=== PATIENT | female | born 1970 | race Caucasian/White ===

== ENCOUNTER 2017-08-05 11:55 | Day surgery (SDC) | payer MEDICAID ==
[~2017-08-05] VITALS: Ht 180.3 cm; Wt 111.4 kg
[~2017-08-05 11:55] MED LIST: CEPH-419 PO; CYCL-394 PO; DULO-31 PO; NORCO10T PO; PRED20TA PO; PROM25TA14 PO; ZOLP12.531 PO; [UNRECOGNIZED DRUG - CODE] PO
[2017-08-05 12:05] VITALS: BP 145/86
[2017-08-05] MEDS ORDERED: MIDAZolam 5mg/5ml vial ONE ×2 (12:08→13:18)
[2017-08-05] MEDS ORDERED: fentaNYL/PF 50MCG/1 ML 2ML syringe ONE ×2 (12:08→13:18)
[2017-08-05] MEDS ORDERED: PROC-8 PO (12:21)
[2017-08-05] MEDS ORDERED: OMEP20TA5 PO (12:22)
[2017-08-05] MEDS ORDERED: LORA0.5T PO (12:22)
[2017-08-05] MEDS ORDERED: METO50TA17 PO (12:23)
[2017-08-05] MEDS ORDERED: CHOL400T PO (12:23)
[2017-08-05] MEDS ORDERED: SIMV20TA PO (12:24)
[2017-08-05] MEDS ORDERED: METF500T7 PO (12:24)
[2017-08-05] MEDS ORDERED: GLIM2TAB2 PO (12:24)
[2017-08-05] MEDS ORDERED: BUTA1TAB52 PO (12:25)
[2017-08-05] MEDS ORDERED: FURO-150 PO (12:25)
[2017-08-05] MEDS ORDERED: AMLO5TAB PO (12:26)
[2017-08-05] MEDS ORDERED: VENL75CA55 PO (12:26)
[2017-08-05] MEDS ORDERED: BREX1TAB PO (12:27)
[2017-08-05] MEDS ORDERED: QUET300T2 PO (12:28)
[2017-08-05] MEDS ORDERED: APIX2.5T PO (12:29)
[2017-08-05] MEDS ORDERED: ROPI1TAB4 PO (12:29)
[2017-08-05] MEDS ORDERED: ONDA4TAB12 PO (12:30)
[2017-08-05 13:40] VITALS: BP 103/60
[2017-08-05 13:50] VITALS: BP 111/58
[2017-08-05 14:00] VITALS: BP 108/57
== END 2017-08-05 14:14 | disposition home or self-care (01) ==
LOC: GI LAB 11:55
PROVIDERS: ATTEND Internal Medicine Gastroenterology
DX: D12.6 Benign neoplasm of colon, unspecified (principal); I10 Essential (primary) hypertension; E11.9 Type 2 diabetes mellitus without complications; G90.521 Complex regional pain syndrome I of right lower limb; Z90.710 Acquired absence of both cervix and uterus; Z79.82 Long term (current) use of aspirin; Z72.89 Other problems related to lifestyle; Z79.01 Long term (current) use of anticoagulants; Z88.0 Allergy status to penicillin; Z90.49 Acquired absence of other specified parts of digestive tract; Z90.89 Acquired absence of other organs; Z79.891 Long term (current) use of opiate analgesic; Z79.84 Long term (current) use of oral hypoglycemic drugs; Z88.6 Allergy status to analgesic agent; Z88.8 Allergy status to other drugs, medicaments and biological substances; Z98.890 Other specified postprocedural states; Z79.899 Other long term (current) drug therapy
CPT/HCPCS: 45380; 99152; J2250; J3010; J7030; A4620; G0500

== ENCOUNTER 2018-04-07 07:50 | Outpatient (CLI) | payer MEDICAID ==
[~2018-04-07 07:50] MED LIST changes: +AMLO5TAB PO; +APIX2.5T PO; +BREX1TAB PO; +BUTA1TAB52 PO; -CEPH-419 PO; +CHOL400T PO; -DULO-31 PO; +FURO-150 PO; +GLIM2TAB2 PO; +LORA0.5T PO; +METF500T7 PO; +METO50TA17 PO; +OMEP20TA5 PO; +ONDA4TAB12 PO; -PRED20TA PO; +PROC-8 PO; -PROM25TA14 PO; +QUET300T2 PO; +ROPI1TAB4 PO; +SIMV20TA PO; +VENL75CA55 PO; -ZOLP12.531 PO; -[UNRECOGNIZED DRUG - CODE] PO
== END 2018-04-07 23:59 | disposition home or self-care (01) ==
LOC: DIABETIC 07:50
PROVIDERS: ATTEND Internal Medicine Endocrinology, Diabetes & Metabolism
DX: E11.65 Type 2 diabetes mellitus with hyperglycemia (principal); I10 Essential (primary) hypertension; Z79.4 Long term (current) use of insulin; Z79.899 Other long term (current) drug therapy; Z88.0 Allergy status to penicillin; Z88.8 Allergy status to other drugs, medicaments and biological substances; Z90.710 Acquired absence of both cervix and uterus
CPT/HCPCS: G0108

== ENCOUNTER 2018-05-12 01:17 | Outpatient (CLI) | payer MEDICAID | END 2018-05-12 23:59 | disposition home or self-care (01) | LOC: DIABETIC 01:17 | PROVIDERS: ATTEND Internal Medicine Endocrinology, Diabetes & Metabolism | DX: E11.9 Type 2 diabetes mellitus without complications (principal); I10 Essential (primary) hypertension; Z79.84 Long term (current) use of oral hypoglycemic drugs; Z72.89 Other problems related to lifestyle; Z88.0 Allergy status to penicillin; Z88.8 Allergy status to other drugs, medicaments and biological substances | CPT/HCPCS: G0108 ==

== ENCOUNTER 2021-06-11 11:12 | Day surgery (SDC) | payer MEDICARE, MEDICAID ==
[~2021-06-11] VITALS: Ht 180.3 cm; Wt 116.3 kg
[~2021-06-11 11:12] MED LIST changes: -GLIM2TAB2 PO; +GLIM2TAB6 PO; +METF-900 PO; -METF500T7 PO; -ROPI1TAB4 PO; +ROPI1TAB6 PO
[2021-06-11] MEDS ORDERED: normal saline 1000ml 1,000 ML IV PRN (11:35)
[2021-06-11 12:30] LABS: BASOPHILS # (AUTO) 0.1 X10'3 (0-0.2); EOSINOPHILS % (AUTO) 15.3 % (0-6); HEMOGLOBIN 13.4 g/dl (12.0-16.0); LYMPHOCYTES # (AUTO) 1.7 X10'3 (1.1-4.8); LYMPHOCYTES % (AUTO) 26.2 % (21-51); MEAN CORPUSCULAR HGB CONC 32.8 g/dL (33.0-36.5); MEAN CORPUSCULAR VOLUME 91.5 FL (78-98); MEAN PLATELET VOLUME 8.4 FL (7.4-10.4); MONOCYTES # (AUTO) 0.5 X10'3 (0-0.9); MONOCYTES % (AUTO) 7.2 % (2-12); NEUTROPHILS # (AUTO) 3.2 X10'3 (1.8-7.7); NEUTROPHILS % (AUTO) 50.3 % (42-75); PLATELET COUNT 171 X10'3 (140-440); RED BLOOD COUNT 4.48 X10'6 (4.20-5.60); RED CELL DISTRIBUTION WIDTH 14.3 % (11.5-14.5); WHITE BLOOD COUNT 6.3 X10'3 (4.5-11.0)
[2021-06-11] MEDS ORDERED: LIDO30CR (12:33)
[2021-06-11] MEDS ORDERED: SERT-433 (12:33)
[2021-06-11] MEDS ORDERED: NOVLG (12:33)
[2021-06-11] MEDS ORDERED: VANC10VI (12:33)
[2021-06-11] MEDS ORDERED: QUET400T13 (12:33)
[2021-06-11] MEDS ORDERED: DICL100G30 (12:33)
[2021-06-11] MEDS ORDERED: LORA-269 PO (12:33)
[2021-06-11] MEDS ORDERED: MECL-159 PO (12:33)
[2021-06-11] MEDS ORDERED: MONT-40 (12:33)
[2021-06-11] MEDS ORDERED: ATOR-2 (12:39)
[2021-06-11] MEDS ORDERED: PROC10TA10 PO (12:39)
[2021-06-11] MEDS ORDERED: INSU100I29 (12:39)
[2021-06-11] MEDS ORDERED: EMPA25TA (12:39)
[2021-06-11] MEDS ORDERED: CARV6.253 PO (12:39)
[2021-06-11] MEDS ORDERED: ACET-2389 (12:39)
[2021-06-11] MEDS ORDERED: AMYL1CAP52 PO (12:39)
[2021-06-11] MEDS ORDERED: NITR0.4T48 SL (12:41)
[2021-06-11] MEDS ORDERED: ESTR42.53 (12:45)
[2021-06-11] MEDS ORDERED: IPRA30SP (12:45)
[2021-06-11] MEDS ORDERED: DICY10CA88 PO (12:50)
[2021-06-11] MEDS ORDERED: MODA200T48 PO (12:50)
[2021-06-11] MEDS ORDERED: FENO134C21 PO (12:50)
[2021-06-11] MEDS ORDERED: [UNRECOGNIZED DRUG - CODE] IR (12:50)
[2021-06-11] MEDS ORDERED: MELA10TA3 PO (12:50)
[2021-06-11] MEDS ORDERED: LIDO15CR11 TOP (12:50)
[2021-06-11] MEDS ORDERED: CAPS60CR6 TP (12:53)
[2021-06-11] MEDS ORDERED: DULA0.75 (12:53)
[2021-06-11] MEDS ORDERED: OMEG1CAP2 (12:53)
[2021-06-11] MEDS ORDERED: VITA-268 PO (12:53)
[2021-06-11 13:27] VITALS: BP 140/89
[2021-06-11] MEDS ORDERED: heparin sodium, porcine/PF 100unit/ml 5ML syringe ONE (13:56)
[2021-06-11] MEDS ORDERED: midazolam 1 mg/ML 2ml injection ONE (13:56)
[2021-06-11] MEDS ORDERED: fentaNYL/PF 50MCG/1 ML 2ML syringe ONE (13:56)
== END 2021-06-11 14:51 | disposition home or self-care (01) ==
LOC: SSTAY O 11:12
PROVIDERS: ATTEND Preventive Medicine Aerospace Medicine
DX: E11.65 Type 2 diabetes mellitus with hyperglycemia (principal); Z53.8 Procedure and treatment not carried out for other reasons; Z79.2 Long term (current) use of antibiotics; Z88.8 Allergy status to other drugs, medicaments and biological substances; Z88.0 Allergy status to penicillin
CPT/HCPCS: 36415; 85025; J1642; J2250; J3010

== ENCOUNTER 2021-08-24 19:32 | Outpatient (CLI) | payer MEDICARE, MEDICAID ==
[~2021-08-24 19:32] MED LIST changes: +ACET-2389; -AMLO5TAB PO; +AMYL1CAP52 PO; +ATOR-2; -BUTA1TAB52 PO; +CAPS60CR6 TP; +CARV6.253 PO; +DICL100G30; +DICY10CA88 PO; +DULA0.75; +EMPA25TA; +ESTR42.53; +FENO134C21 PO; -FURO-150 PO; -GLIM2TAB6 PO; +INSU100I29; +IPRA30SP; +LIDO15CR11 TOP; +LIDO30CR; +LORA-269 PO; -LORA0.5T PO; +MECL-159 PO; +MELA10TA3 PO; -METF-900 PO; -METO50TA17 PO; +MODA200T48 PO; +MONT-40; +NITR0.4T48 SL; +NOVLG; +OMEG1CAP2; +OMEP20TA43 PO; -OMEP20TA5 PO; -ONDA4TAB12 PO; -PROC-8 PO; +PROC10TA10 PO; -QUET300T2 PO; +QUET400T13; -ROPI1TAB6 PO; +SERT-433; -SIMV20TA PO; +VANC10VI; -VENL75CA55 PO; +VITA-268 PO; +[UNRECOGNIZED DRUG - CODE] IR
[2021-08-24 19:51] LABS: BASOPHILS % (AUTO) 0.4 % (0-1); EOSINOPHILS # (AUTO) 0.1 X10'3 (0-0.9); EOSINOPHILS % (AUTO) 1.8 % (0-6); HEMATOCRIT 40.5 % (35.0-45.0); HEMOGLOBIN 13.2 g/dl (12.0-16.0); LYMPHOCYTES % (AUTO) 42.3 % (21-51); MEAN CORPUSCULAR HEMOGLOBIN 29.9 PG (27.0-31.0); MEAN CORPUSCULAR HGB CONC 32.7 g/dL (33.0-36.5); MEAN CORPUSCULAR VOLUME 91.4 FL (78-98); MEAN PLATELET VOLUME 9.7 FL (7.4-10.4); MONOCYTES # (AUTO) 0.4 X10'3 (0-0.9); MONOCYTES % (AUTO) 8.6 % (2-12); NEUTROPHILS # (AUTO) 2.2 X10'3 (1.8-7.7); NEUTROPHILS % (AUTO) 46.9 % (42-75); PLATELET COUNT 163 X10'3 (140-440); RED BLOOD COUNT 4.43 X10'6 (4.20-5.60); RED CELL DISTRIBUTION WIDTH 14.2 % (11.5-14.5); WHITE BLOOD COUNT 4.6 X10'3 (4.5-11.0)
[2021-08-24 19:58] LABS: ALBUMIN 4.1 G/DL (3.4-5.0); ANION GAP 10 (8-16); BLOOD UREA NITROGEN 19 MG/DL (7-18); BUN/CREATININE RATIO 16.8 (6.6-38.0); CALCIUM 9.7 MG/DL (8.5-10.1); CHLORIDE 103 MMOL/L (99-107); CREATININE 1.13 MG/DL (0.40-0.90); SODIUM 140 MMOL/L (135-145); TOTAL CARBON DIOXIDE 26.9 MMOL/L (24-32); eGFR 50 ML/MIN
[2021-08-24 20:07] LABS: GLUCOSE 179 MG/DL (70-104)
== END 2021-08-24 23:59 | disposition home or self-care (01) ==
LOC: LAB SPEC 19:32
PROVIDERS: ATTEND Student in an Organized Health Care Education/Training Program
DX: L03.90 Cellulitis, unspecified (principal)
CPT/HCPCS: 36415; 80048; 85025

== ENCOUNTER 2021-12-17 05:42 | Day surgery (SDC) | payer MEDICARE, MEDICAID ==
[2021-12-11 12:37] LABS: BASOPHILS % (AUTO) 0.5 % (0-1); EOSINOPHILS # (AUTO) 0.1 X10'3 (0-0.9); EOSINOPHILS % (AUTO) 1.5 % (0-6); LYMPHOCYTES # (AUTO) 2.5 X10'3 (1.1-4.8); LYMPHOCYTES % (AUTO) 35.4 % (21-51); MEAN CORPUSCULAR HEMOGLOBIN 30.1 PG (27.0-31.0); MEAN CORPUSCULAR HGB CONC 33.2 g/dL (33.0-36.5); MEAN CORPUSCULAR VOLUME 90.6 FL (78-98); MEAN PLATELET VOLUME 8.3 FL (7.4-10.4); MONOCYTES # (AUTO) 0.5 X10'3 (0-0.9); MONOCYTES % (AUTO) 6.6 % (2-12); NEUTROPHILS # (AUTO) 3.9 X10'3 (1.8-7.7); PRE OP HEMATOCRIT 41.9 % (35.0-45.0); PRE OP HEMOGLOBIN 13.9 g/dL (12.0-16.0); PRE OP PLATELET COUNT 197 X10'3 (140-440); RED BLOOD COUNT 4.63 X10'6 (4.20-5.60); RED CELL DISTRIBUTION WIDTH 14.4 % (11.5-14.5)
[2021-12-11 12:53] LABS: ALBUMIN 3.9 G/DL (3.4-5.0); ALBUMIN/GLOBULIN RATIO 0.9 (1.1-1.5); ALKALINE PHOSPHATASE 49 IU/L (46-116); BLOOD UREA NITROGEN 20 MG/DL (7-18); BUN/CREATININE RATIO 16.9 (6.6-38.0); CALCIUM 9.6 MG/DL (8.5-10.1); CHLORIDE 99 MMOL/L (99-107); CREATININE 1.18 MG/DL (0.40-0.90); PRE OP ALT 34 U/L (30-65); PRE OP ANION GAP 9 (8-16); PRE OP AST 24 U/L (10-37); PRE OP BILIRUB, TOTAL 0.4 MG/DL (0.0-1.0); PRE OP GLUCOSE 109 MG/DL (70-104); PRE OP POTASSIUM 4.3 MMOL/L (3.4-5.1); PRE OP SODIUM 137 MMOL/L (135-145); TOTAL CARBON DIOXIDE 29.3 MMOL/L (24-32); TOTAL PROTEIN 8.1 G/DL (6.4-8.2); eGFR 48 ML/MIN
[2021-12-17] VITALS (7 sets, daily range): BP systolic 118–127; BP diastolic 71–80
[~2021-12-17] VITALS: Ht 180.3 cm; Wt 109.0 kg
[~2021-12-17 05:42] MED LIST changes: -ACET-2389; +ACET-2389 PO; +ALBU18HF2 PO; -ATOR-2; +ATOR-2 PO; +CHOL100017 PO; -CHOL400T PO; -DICL100G30; +DICL100G30 TOP; -DICY10CA88 PO; +DICY20TA2 PO; +DOCUMENT DATE & TIME OF BETA-BLOCKER PO ONE; -DULA0.75; -EMPA25TA; +EMPA25TA PO; +ESTR10TA4 VG; -ESTR42.53; -INSU100I29; +INSU100I29 SQ; -LIDO30CR; -MECL-159 PO; +MECL-231 PO; -MONT-40; +MONT-40 PO; -NITR0.4T48 SL; -OMEP20TA43 PO; +PANT20TA2 PO; -QUET400T13; +QUET400T13 PO; -SERT-433; +SERT-433 PO; -VANC10VI; -VITA-268 PO; -[UNRECOGNIZED DRUG - CODE] IR; +clindamycin-Cleocin 900mg/D5W 50 ML IV ONE; +famotidine 20mg tablet PO ONE; +ringers solution, lacted 1,000 ML IV SCH
[2021-12-17] MEDS ORDERED: BUPIVAcaine/PF 2.5mg/ml (0.25%) 10ml vial ONE (06:44)
[2021-12-17] MEDS ORDERED: labetalol 20mg/4ml (5mg/ml) syringe IV PRN (07:00)
[2021-12-17] MEDS ORDERED: hydrALAZINE 20mg/ml inj. IV PRN (07:00)
[2021-12-17] MEDS ORDERED: fentaNYL/PF 50MCG/1 ML 2ML syringe IV PRN ×2 (07:00)
[2021-12-17] MEDS ORDERED: morphine 4 MG/ML inj SYRINge IV PRN (07:00)
[2021-12-17] MEDS ORDERED: ondansetron/PF 4mg/2ml inj IV PRN (07:00)
[2021-12-17] MEDS ORDERED: ringers solution, lacted 1,000 ML IV SCH (07:00)
[2021-12-17] MEDS ORDERED: morphine 2 MG/ML inj. syringe IV PRN (07:00)
[2021-12-17] MEDS ORDERED: LIDOcaine 0.5% (5mg/ml) 50ml vial ONE (07:06)
[2021-12-17] MEDS ORDERED: MIDAZolam 1 MG/ML 5ML VIAL ONE (07:11)
[2021-12-17] MEDS ORDERED: fentaNYL/PF 50MCG/1 ML 2ML syringe ONE (07:11)
[2021-12-17] MEDS ORDERED: propofol inj 20 ML IV ONE (07:13)
--- NOTE | 2021-12-17 07:43 | NUR ---
RECEIVED PT FROM OPERATING ROOM IN STABLE CONDITION, REPORT RECEIVED FROM ANESTHESIA. VITAL SIGNS STABLE
--- NOTE | 2021-12-17 08:23 | NUR ---
DISCHARGE INSTRUCTION GIVEN TO PT, SHE VERBALIZED UNDERSTANDING. PT TAKEN VIA WHEELCHAIR TO SON WHO WAS DRIVING HER HOME. ICE PACK ON WRIST, PT HAS HER PAIN MEDICATIONS AT HOME ALREADY. FOLLOW UP APPOINTMENT ALREADY MADE.
== END 2021-12-17 08:23 | disposition home or self-care (01) ==
LOC: PAS 05:42
PROVIDERS: ATTEND Orthopaedic Surgery Hand Surgery
DX: G56.01 Carpal tunnel syndrome, right upper limb (principal); E11.9 Type 2 diabetes mellitus without complications; G47.30 Sleep apnea, unspecified; I10 Essential (primary) hypertension; F41.8 Other specified anxiety disorders; Z79.899 Other long term (current) drug therapy; Z98.890 Other specified postprocedural states; M17.0 Bilateral primary osteoarthritis of knee; G89.4 Chronic pain syndrome; Z82.49 Family history of ischemic heart disease and other diseases of the circulatory system; Z20.822 Contact with and (suspected) exposure to COVID-19
CPT/HCPCS: 29848; 36415; 80053; 82948; 85025; 87811; A6222; J2250; J2704; J3010; J3490; J7030; J7120; Z7506; Z7512; A4215; A7000

== ENCOUNTER 2022-01-21 05:36 | Day surgery (SDC) | payer MEDICARE, MEDICAID ==
[2022-01-14 10:30] LABS: BASOPHILS % (AUTO) 0.6 % (0-1); EOSINOPHILS # (AUTO) 0.1 X10'3 (0-0.9); EOSINOPHILS % (AUTO) 1.9 % (0-6); LYMPHOCYTES % (AUTO) 32.2 % (21-51); MEAN CORPUSCULAR HGB CONC 33.7 g/dL (33.0-36.5); MEAN CORPUSCULAR VOLUME 92.1 FL (78-98); MEAN PLATELET VOLUME 8.1 FL (7.4-10.4); MONOCYTES # (AUTO) 0.3 X10'3 (0-0.9); MONOCYTES % (AUTO) 5.3 % (2-12); NEUTROPHILS # (AUTO) 3.7 X10'3 (1.8-7.7); PRE OP HEMATOCRIT 41.3 % (35.0-45.0); PRE OP HEMOGLOBIN 13.9 g/dL (12.0-16.0); PRE OP PLATELET COUNT 193 X10'3 (140-440); RED BLOOD COUNT 4.48 X10'6 (4.20-5.60); RED CELL DISTRIBUTION WIDTH 14.1 % (11.5-14.5)
[2022-01-14 10:42] LABS: ALBUMIN 3.6 G/DL (3.4-5.0); ALBUMIN/GLOBULIN RATIO 0.9 (1.1-1.5); ALKALINE PHOSPHATASE 59 IU/L (46-116); BLOOD UREA NITROGEN 22 MG/DL (7-18); BUN/CREATININE RATIO 19.3 (6.6-38.0); CALCIUM 9.8 MG/DL (8.5-10.1); CHLORIDE 104 MMOL/L (99-107); CREATININE 1.14 MG/DL (0.40-0.90); PRE OP ALT 36 U/L (30-65); PRE OP ANION GAP 7 (8-16); PRE OP AST 27 U/L (10-37); PRE OP BILIRUB, TOTAL 0.4 MG/DL (0.0-1.0); PRE OP GLUCOSE 144 MG/DL (70-104); PRE OP POTASSIUM 3.9 MMOL/L (3.4-5.1); PRE OP SODIUM 140 MMOL/L (135-145); TOTAL CARBON DIOXIDE 29.3 MMOL/L (24-32); TOTAL PROTEIN 7.7 G/DL (6.4-8.2); eGFR 50 ML/MIN
[2022-01-21] VITALS (10 sets, daily range): BP systolic 109–136; BP diastolic 69–81
[~2022-01-21] VITALS: Ht 180.3 cm; Wt 113.5 kg
[~2022-01-21 05:36] MED LIST changes: +AMYL1CAP53 PO; -NOVLG; +NOVLG SQ; -OMEG1CAP2; +[UNRECOGNIZED DRUG - CODE] IV; +clindamycin 600mg/D5W 50ml 50 ML IV ONE; -clindamycin-Cleocin 900mg/D5W 50 ML IV ONE
[2022-01-21] MEDS ORDERED: BUPIVAcaine/PF 2.5 mg/ml (0.25%) 30ml vial ONE (06:34)
[2022-01-21] MEDS ORDERED: sevoflurane 250ml liquid IH ONE (07:24)
[2022-01-21] MEDS ORDERED: fentaNYL/PF 50MCG/1 ML 2ML syringe ONE (07:28)
[2022-01-21] MEDS ORDERED: midazolam 1 mg/ML 2ml injection ONE (07:28)
[2022-01-21] MEDS ORDERED: propofol inj 20 ML IV ONE (07:41)
--- NOTE | 2022-01-21 07:52 | NUR ---
[facility] OR [facility] BY DR. Mcginnis. VSS, LMA TAKEN OUT BY DR MCGINNIS. DRESSING TO LEFT HAND CDI. MOVES FINGERS WELL, NO PAIN. LEFT PORT CLEAR AND IV RUNNING WELL.
[2022-01-21] MEDS ORDERED: meperidine/PF 25mg/ml syringe IV PRN ×3 (07:55)
[2022-01-21] MEDS ORDERED: morphine 4 MG/ML inj SYRINge IV PRN (07:55)
[2022-01-21] MEDS ORDERED: morphine 2 MG/ML inj. syringe IV PRN (07:55)
[2022-01-21] MEDS ORDERED: proCHLORperazine 10 MG/2 ml inj IV PRN (07:55)
[2022-01-21] MEDS ORDERED: ringers solution, lacted 1,000 ML IV SCH (07:55)
[2022-01-21] MEDS ORDERED: ondansetron/PF 4mg/2ml inj IV PRN (07:55)
--- NOTE | 2022-01-21 09:02 | NUR ---
PATIENT A&OX4, DENIES PAIN, V/S WNL, SCD OFF, 20G TO LUE D/C, RIGHT WRIST DRESSING CDI W/ SLING. ICE AND ELEVATED RUE. I HAVE REVIEWED D/C INSTRUCTIONS WITH PATIENT and they have verbalized understanding patient d/c home with all belongings and family gave transport home. Addendum: 01/21/22 at 0924 by Seda Morales RN Amended: Links added.
== END 2022-01-21 09:02 | disposition home or self-care (01) ==
LOC: PAS 05:36
PROVIDERS: ATTEND Orthopaedic Surgery Hand Surgery
DX: G56.02 Carpal tunnel syndrome, left upper limb (principal); I10 Essential (primary) hypertension; F41.8 Other specified anxiety disorders; M17.0 Bilateral primary osteoarthritis of knee; E11.9 Type 2 diabetes mellitus without complications; G47.30 Sleep apnea, unspecified; Z79.899 Other long term (current) drug therapy; Z98.890 Other specified postprocedural states; Z88.0 Allergy status to penicillin; Z88.8 Allergy status to other drugs, medicaments and biological substances; M19.071 Primary osteoarthritis, right ankle and foot; Z82.49 Family history of ischemic heart disease and other diseases of the circulatory system; Z89.432 Acquired absence of left foot
CPT/HCPCS: 29848; 36415; 80053; 82948; 85025; A6222; J2250; J2704; J3010; J3490; J7030; J7120; Z7506; Z7512; A4215; A4618; A6449; A7000

== ENCOUNTER → 2022-02-22 | Outpatient (CLI) | payer MEDICAID, MEDICARE, OTHER ==
[~2022-02-22] MED LIST changes: -AMYL1CAP52 PO; -DOCUMENT DATE & TIME OF BETA-BLOCKER PO ONE; -clindamycin 600mg/D5W 50ml 50 ML IV ONE; -famotidine 20mg tablet PO ONE; -ringers solution, lacted 1,000 ML IV SCH
[2022-02-22 17:00] LABS: EOSINOPHILS # (AUTO) 0.1 X10'3 (0-0.9); EOSINOPHILS % (AUTO) 1.8 % (0-6); MEAN CORPUSCULAR HEMOGLOBIN 30.5 PG (27.0-31.0)
[2022-02-22 17:01] LABS: BASOPHILS % (AUTO) 0.5 % (0-1); HEMOGLOBIN 12.5 g/dl (12.0-16.0); LYMPHOCYTES # (AUTO) 1.8 X10'3 (1.1-4.8); LYMPHOCYTES % (AUTO) 39.7 % (21-51); MEAN CORPUSCULAR VOLUME 92.3 FL (78-98); MEAN PLATELET VOLUME 9.1 FL (7.4-10.4); MONOCYTES # (AUTO) 0.3 X10'3 (0-0.9); NEUTROPHILS # (AUTO) 2.3 X10'3 (1.8-7.7); PLATELET COUNT 175 X10'3 (140-440); RED BLOOD COUNT 4.11 X10'6 (4.20-5.60); RED CELL DISTRIBUTION WIDTH 15.1 % (11.5-14.5); WHITE BLOOD COUNT 4.6 X10'3 (4.5-11.0)
[2022-02-22 17:31] LABS: ALBUMIN 3.7 G/DL (3.4-5.0); ANION GAP 12 (8-16); BLOOD UREA NITROGEN 14 MG/DL (7-18); BUN/CREATININE RATIO 14.1 (6.6-38.0); CALCIUM 9.4 MG/DL (8.5-10.1); CHLORIDE 104 MMOL/L (99-107); CREATININE 0.99 MG/DL (0.40-0.90); SODIUM 140 MMOL/L (135-145); TOTAL CARBON DIOXIDE 24.2 MMOL/L (24-32); eGFR 59 ML/MIN
[2022-02-22 17:32] LABS: GLUCOSE 162 MG/DL (70-104); POTASSIUM 4.1 MMOL/L (3.5-5.1); VANCOMYCIN,RANDOM 10.3 UG/ML
== END | disposition home or self-care (01) ==
LOC: LAB 11:50
PROVIDERS: ATTEND Student in an Organized Health Care Education/Training Program
DX: E13.621 Other specified diabetes mellitus with foot ulcer (principal)
CPT/HCPCS: 36415; 80048; 80202; 85025

== ENCOUNTER 2022-04-12 07:20 | Day surgery (SDC) | payer MEDICARE, MEDICAID ==
[~2022-04-12] VITALS: Ht 180.3 cm; Wt 114.6 kg
[2022-04-12 07:41] VITALS: BP 155/90
[2022-04-12] MEDS ORDERED: APIX5TAB3 PO (08:00)
[2022-04-12] MEDS ORDERED: normal saline 1000ml 1,000 ML IV PRN (08:05)
[2022-04-12] MEDS ORDERED: CARV3.12 PO (08:14)
[2022-04-12] MEDS ORDERED: COMPAZINE RC (08:18)
[2022-04-12] MEDS ORDERED: DICLOFENAC (08:18)
[2022-04-12] MEDS ORDERED: NALO4SPR BOTHNARES (08:18)
[2022-04-12] MEDS ORDERED: GLUC1KIT IM (08:18)
[2022-04-12] MEDS ORDERED: heparin sodium, porcine/PF 100unit/ml 5ML syringe ONE (10:44)
[2022-04-12 11:02] VITALS: BP 150/85
== END 2022-04-12 11:02 | disposition home or self-care (01) ==
LOC: SSTAY O 07:20
PROVIDERS: ATTEND Radiology Vascular & Interventional Radiology
DX: Z45.2 Encounter for adjustment and management of vascular access device (principal); K31.84 Gastroparesis; G89.29 Other chronic pain; G90.50 Complex regional pain syndrome I, unspecified; E11.40 Type 2 diabetes mellitus with diabetic neuropathy, unspecified; Z90.710 Acquired absence of both cervix and uterus; Z90.49 Acquired absence of other specified parts of digestive tract; Z98.890 Other specified postprocedural states; Z88.0 Allergy status to penicillin; Z88.1 Allergy status to other antibiotic agents; Z88.8 Allergy status to other drugs, medicaments and biological substances; Z79.899 Other long term (current) drug therapy; Z79.01 Long term (current) use of anticoagulants
CPT/HCPCS: 36598; J1642; A6449

== ENCOUNTER 2024-09-13 09:47 | Outpatient (CLI) | payer MEDICARE, MEDICAID ==
[~2024-09-13 09:47] MED LIST changes: -APIX2.5T PO; +APIX5TAB3 PO; +CARV3.12 PO; -CARV6.253 PO; +COMPAZINE RC; -DICL100G30 TOP; +DICL100G59 TOP; +DICLOFENAC; +GLUC1VIA IM; -LIDO15CR11 TOP; +LIDO15CR15 TOP; +NALO4SPR BOTHNARES; -PROC10TA10 PO; +PROC10TA97 PO
--- NOTE | 2024-09-13 11:58 | RADIOLOGY REPORT ---
Technique: Real-time ultrasound imaging of the abdomen was performed with grayscale and color Doppler . Indication: FATTY (CHANGE OF) LIVER, NOT ELSEWHERE CLASSIFIED Comparison: None Findings: Liver measures 19.8 cm. It is increased in echogenicity and echotexture without focal mass. Portal vein is normal in caliber and demonstrates normal hepatopetal flow. Gallbladder is removed. The common bile duct measures 7 mm. No intrahepatic biliary ductal dilatation. The right kidney measures 9.7 cm. There is no hydronephrosis or sonographic evidence of nephrolithias is. The visualized portion of the pancreas is unremarkable. The visualized portion of the IVC is unremarkable. Impression: Echogenic liver which can be seen with hepatic steatosis, cirrhosis. Hepatomegaly Cholecystectomy
== END 2024-09-13 23:59 | disposition home or self-care (01) ==
LOC: RAD 09:47
PROVIDERS: ATTEND Physician Assistant Medical
DX: K76.0 Fatty (change of) liver, not elsewhere classified (principal); R33.9 Retention of urine, unspecified; R16.0 Hepatomegaly, not elsewhere classified; K74.60 Unspecified cirrhosis of liver; Z90.49 Acquired absence of other specified parts of digestive tract
CPT/HCPCS: 76700

== ENCOUNTER 2024-09-17 14:35 | Outpatient (CLI) | payer MEDICARE, MEDICAID ==
--- NOTE | 2024-09-17 15:29 | RADIOLOGY REPORT ---
Technique: Real-time ultrasound images through the pelvis using a transabdominal transducer. Indication: RETENTION OF URINE, UNSPECIFIED Comparison: None Findings: Bladder prevoid volume 564 cc. Postvoid residual 5 cc. Bilateral ureteral jets seen. No focal bladd er wall thickening seen. Impression: No evidence for abnormal urinary retention /postvoid residual.
== END 2024-09-17 23:59 | disposition home or self-care (01) ==
LOC: RAD 14:35
PROVIDERS: ATTEND Physician Assistant Medical
DX: K76.0 Fatty (change of) liver, not elsewhere classified (principal); R33.9 Retention of urine, unspecified
CPT/HCPCS: 76857

== ENCOUNTER 2025-03-22 16:41 | Emergency (ER) | payer MEDICARE, MEDICAID ==
[~2025-03-22] VITALS: Ht 170.2 cm; Wt 106.6 kg
--- NOTE | 2025-03-22 17:04 | ELECTROCARDIOGRAPH REPORT ---
[facility] Test Date: 2025-03-22 Test Time: 17:03:53 Pat Name: BERNADETTE DOSS Department: [facility]-ER Patient ID: [id number] Room: Gender: F Title I Instructional Assistant: : [id number] Requested By: SUDHIR FULTON Order Number: [id number] Reading MD: Dr. Woodrow Archibald Measurements Intervals Reynolds Rate: 99 P: 0 IL: 0 QRS: 235 QRSD: 99 T: 6 QT: 345 QTc: 443 Interpretive Statements Atrial fibrillation Low voltage, precordial leads Consider right ventricular hypertrophy Borderline T abnormalities, anterior leads Minimal ST elevation, lateral leads Electronically Signed On 03-23-2025 21:13:[address] Woodrow Archibald Please click the below link to view image of tracing.
--- NOTE | 2025-03-22 18:09 | Physician Documentation ---
History of Present Illness ~ Chief Complaint: Nose bleed Stated Complaint: NOSE BLEEDS Time Seen by MD: 17:34 Primary Medical Doctor: NO PMD, DR HALE Mode of Arrival: EMS HPI 54-year-old female presents to the ED with a complaint recurrent nosebleeds after she was recently placed on Lovenox secondary to pulmonary embolisms. She does not have any current shortness of breath denies any chest pain. She states that she has a abdominal pain and has developed a bulge where she has injected Lovenox Day of Onset: Mar 22, 2025 Medication Reconciliation Allergies: Coded Allergies: Penicillins (Verified Allergy, Severe, "CAUSES BREATHING PROBLEMS AND A RASH", 03/22/25) ciprofloxacin (Verified Allergy, Unknown, HIVES, DIZZINESS, GI ISSUES, 03/22/25) "SEVERE ITCHING WITH HIVES, SEVERE DIZZINESS, HEART BURN, STOMACH PAIN, NAUSEOUS" montelukast (Unverified Allergy, Unknown, 03/22/25) RASH/ITCH pregabalin (Unverified Allergy, Unknown, RASH/ITCH, 03/22/25) lisinopril (Verified Adverse Reaction, Unknown, "CAUSES ME TO PASS OUT", 03/22/25) zolpidem (Verified Adverse Reaction, Unknown, "CAUSES SLEEP WALKING", 03/22/25) Scheduled Apixaban (Eliquis), 1 TAB PO Q12H, (Reported) Atorvastatin Calcium (Atorvastatin Calcium), 1 TAB PO DAILY, (Reported) Brexpiprazole (Rexulti), 1 TAB PO DAILY, (Reported) Carvedilol (Coreg), 1 TAB PO Q12H, (Reported) Cholecalciferol (Vitamin D3) (Vitamin D3), 1 TAB PO DAILY, (Reported) Cyclobenzaprine HCl (Cyclobenzaprine HCl), 10 MG PO BID PRN MUSCLE SPASM, (Reported) Empagliflozin (Jardiance), 1 TAB PO DAILY, (Reported) Estradiol (Yuvafem), 1 TAB VG MTH, (Reported) Fenofibrate,Micronized (Fenofibrate), 1 CAP PO DAILY, (Reported) Glucagon,Human Recombinant (Glucagon Emergency Kit), 1 MG IM UD, (Reported) Insulin Degludec (Tresiba Flextouch U-100), 100 UNITS SQ QAM, (Reported) Ipratropium [place] Nasal [place]* (Atrovent Nasal [place]*), 2 SPRAY NA BID, (Reported) Lorazepam (Ativan), 2 TAB PO HS, (Reported) Melatonin (Melatonin), 15 MG PO HS, (Reported) Modafinil (Modafinil), 2 TAB PO QAM, (Reported) Montelukast Sodium (Montelukast Sodium), 1 TAB PO DAILY, (Reported) Naloxone HCl (Narcan), 1 SPRAYS BOTHNARES ONCE, (Reported) Normal Saline (SODIUM CHLORIDE 1000ml IV.SOLN), 1,000 ML IV DAILY, (Reported) Pantoprazole Sodium (Protonix), 1 TAB PO BID, (Reported) Quetiapine Fumarate (Quetiapine Fumarate), 1 TAB PO HS, (Reported) Sertraline HCl (Sertraline HCl), 1 TAB PO DAILY, (Reported) Scheduled PRN Acetaminophen (Arthritis Pain Relief), 2 CAP PO Q8H PRN for headache, (Reported) Albuterol Sulfate (Ventolin Hfa), 2 PUFFS PO Q4H PRN for SOB or wheezing, (Reported) Amylase/Lipase/Protease (Creon Dr 6,000 Units Capsule), 1 EACH PO DAILY PRN for SNACK, (Reported) Capsaicin 60GM Cream* (Zostrix Cream*), 1 APPLIC TP PRN PRN for pain, (Reported) Diclofenac Sodium (Diclofenac Sodium), 1 APPLIC TOP BID PRN for pain, (Reported) Dicyclomine HCl (Dicyclomine HCl), 1 TAB PO QID PRN for STOMACH CRAMPING, (Re ported) Hydrocodone Bit/Acetaminophen 10/325 MG* ([place] 10/325 MG*), 1 TAB PO BID PRN for pain, (Reported) Insulin Aspart (Novolog), 10 UNIT SQ ACHS PRN for SLIDING SCALE, (Reported) Lidocaine (Lidocaine), 1 APPLIC TOP QID PRN for pain, (Reported) Meclizine Hcl (Meclizine Hcl), 2 TABLET PO TID PRN for dizziness/vertigo, (Reported) Prochlorperazine Maleate (Prochlorperazine Maleate), 1 TAB PO TID PRN for nausea/vomiting, (Reported) [Compazine], 25 MG RC BID PRN for nausea/vomiting, (Reported) Miscellaneous Medications [Diolofenac Sodium], (Reported) Past Medical History Past Medical History: Peripheral Neuropathy, Chronic Pain Past Surgical History: appendectomy, cholecystectomy, hysterectomy, orthopedic surgeries Alcohol Use: None Drug Use: none Lives In: Home Occupation: employed Physical Exam Vital Signs: Temperature: 99.3, Source: Oral, Heart Rate: 93, Respiratory Rate: 7, BP: 130/83, Pulse Oximetry: 93, Weight: 106.600 Physical Exam General: Alert, no apparent distress. Respiratory: Lungs clear, no respiratory distress. Chest: No accessory muscle use. Cardiovascular: Regular rate and rhythm, no murmurs. Gastrointestinal: Soft, nontender, nondistended. Bowels sounds present. Extremities: Normal range of motion, no deformity. Psychiatric: Normal mood and affect. Skin: Normal bruising in the abdomen at Lovenox injection sites Progress Results/Orders Results/Orders Orders - GUS STEVENS FLEXO OPERATOR Ct Abdomen Pelvis (03/22/25 18:12) Completed Orders - GUS STEVENS FLEXO OPERATOR PTT (03/22/25 17:48) Pt Inr (03/22/25 17:48) Cbc/Diff (03/22/25 17:51) Ct Abdomen Pelvis (03/22/25 18:12) Vital Signs 03/22/25 03/22/25 03/22/25 03/22/25 16:48 16:55 17:29 19:09 Temp 99.3 99.3 99.3 Pulse 109 93 95 Resp 18 7 12 B/P (MAP) 137/92 130/83 (99) 135/90 Pulse Ox 97 93 96 Laboratory Tests Test 03/22/25 17:56 White Blood Count 9.1 Red Blood Count 4.39 Hemoglobin 12.5 Hematocrit 38.2 Mean Corpuscular Volume 87.2 Mean Corpuscular Hemoglobin 28.4 Mean Corpuscular Hemoglobin Concent 32.6 L Red Cell Distribution Width 16.9 H Platelet Count 155 Mean Platelet Volume 7.7 Neutrophils (%) (Auto) 69.2 Lymphocytes (%) (Auto) 24.3 Monocytes (%) (Auto) 4.9 Eosinophils (%) (Auto) 1.1 Basophils (%) (Auto) 0.5 Neutrophils # (Auto) 6.3 Lymphocytes # (Auto) 2.2 Monocytes # (Auto) 0.4 Eosinophils # (Auto) 0.1 Basophils # (Auto) 0.0 CBC Comment Prothrombin Time 11.1 INR International Normalized Ratio 1.1 Activated Partial Thromboplast Time 32 Coagulation Comments Medical Decision Making Additional information obtaine: old records Findings He abdomen did not show any abnormalities other than soft tissue swelling secondary to ongoing Lovenox injections the patient is a CBC was unremarkable as well for any deficiencies and her hemoglobin secondary to ongoing epistaxis the PT INR did not show any gross abnormalities. Denies the patient she needs to follow up with primary care for further evaluation of her Lovenox injections if they continue to be necessary Ear Diff. Dx: Considerations: Unlikely: Abrasion, Cerumen impaction, Foreign body, Otitis externa, Barotrauma, Otitis media, Perforation, Referred pain- dental, Referred pain-pharyngitis, Referred pain-sinusitis, Referred pain-TMJ syn., Tympanic Membrane Injury, Other Eye Diff. Dx: Considerations: Unlikely: [place], Conjuctivits-allergic, Conjuctivitis-bacterial, Conjuctivits-chlamydial, Conjuctivitis-viral, Corneal abrasion, Corneal laceration, Corneal ulceration, Foreign body-conjuctiva, Foreign body-corneal, Foreign body-intraocular, Foreign body-lid, Glaucoma, Globe rupture, Hordeolum, Iritis, Orbital cellulitis, Periobital cellulitis, Retinal artery occulsion, Retinal vein occlusion, Rust ring, Subconjunctival hem, Ultraviolet keratitis, Uveitis, Vitreous hemorrhage, Other Nose Diff. Dx: Considerations: Include: Abrasion, Anterior nasal bleed, Avulsion, Contusion, Coagulopathy, Fracture-nasal bone, Fracture-septum, Hypertension, Laceration, Other, Posterior nasal bleed, Retained foreign body, Septal hematoma Tooth Diff. Dx: Considerations: Unlikely: Alveolar fracture, Aveolar osteitis, ANUG, Facial cellulitis, Periapical abscess, Periodontal abscess, Post- extraction bleeding, Pulpitis, Trigeminal neuralgia, Tooth-avulsion, Tooth- eruption, Tooth-fracture, Tooth-subluxation, Other Throat Diff Dx: Considerations: Unlikely: AIDS, Epiglottitis, Esophageal candidiasis, Hand foot mouth disease, Herpangina, Herpetic stomatitis, Herpes simplex, Infection mononucleosis, Immunodeficiency, Rom's angina, Peritonsillar abscess, Peritonsillar cellulitis, Pharyngitis-diphtheria, Pharyngitis-strepococcal, Pharyngitis-viral, Thrush, URI, Other Departure Disposition: HOME / SELF CARE / HOMELESS Impression: Primary Impression: Epistaxis Condition: Improved Discharge Instructions: Nosebleed, Adult Referrals: NO PRIMARY CARE PROVIDER (PCP) Signature Scribe Signature: g Attestation: Scribed for Gus Stevens Gear Generator Set Up Operator by Gus Stevens - EZEKIEL . 03/23/25 15:36 GUS STEVENS FLEXO OPERATOR Mar 22, 2025 18:09
[2025-03-22 18:11] LABS: MEAN PLATELET VOLUME 7.7 FL (7.4-10.4); RED CELL DISTRIBUTION WIDTH 16.9 % (11.5-14.5)
[2025-03-22 18:16] LABS: APTT 32 SECONDS (22-32); INR 1.1 INR
--- NOTE | 2025-03-22 18:49 | RADIOLOGY REPORT ---
COMPUTERIZED TOMOGRAPHY ABDOMEN AND PELVIS WITHOUT CONTRAST REASON FOR EXAM: Left lower quadrant abdominal pain COMPARISON: US ULTRASOUND OF ABDOMEN on DOS: 09/13/24 TECHNIQUE: Spiral scans were acquired from the diaphragm to the symphysis pubis without intravenous contrast administration. 2-D coronal and sagittal reformatted images were provided. Radiation optimization: All CT scans at this facility use at least one of these dose optimization techniques: Automated exposure control mA and/or kV adjustment per patient size (includes targeted exams where dose is matched to clinical indication) or iterative reconstruction. RADIATION DOSE: CTDI: 31 mGy DLP: 1816 mGy-cm FINDINGS: The visualized lung bases are grossly clear. There is no pleural effusion. There is no pericardial effusion. There is partial visualization of a catheter terminating at the cavoatrial junction. The spleen is mildly enlarged at 14.0 cm in length. The liver is enlarged at 21.8 cm in length. Evaluation of the abdominal organs is suboptimal in the absence of intravenous contrast. The gallbladder is surgically absent. Unenhanced appearance of the pancreas is grossly unremarkable. The adrenal glan ds appear normal. The kidneys are similar in size. There is no hydronephrosis of either kidney. No renal, ureteral, or bladder calculus is identified. There is no abdominal aortic aneurysm. The urinary bladder appears grossly unremarkable. The uterus is absent. The ovaries are not seen and are also likely absent. No free fluid is identified in the abdomen or pelvis. The colonic stool burden is small. The appendix is not seen and is likely absent. There is no distention of the small bowel. No pathologic lymphadenopathy is identified by size criteria. There are numerous soft tissue densities in the anterior abdominal wall, some of which contain trace air, likely representing subcutaneous medication injection and bruising. There are severe degenerative changes in the lumbar spine. IMPRESSION: No acute abnormality identified in the abdomen or pelvis to explain the patient's left lower quadrant abdominal pain. There are numerous soft tissue densities in the anterior abdominal wall, some of which contain trace air, likely representing subcutaneous medication injection and bruising.
[2025-03-22 19:09] VITALS: BP 135/90; PULSE 95; RESP 12; TEMP 99.3; O2SAT 96
== END 2025-03-22 19:11 | disposition home or self-care (01) ==
LOC: ER 16:42
DX: R04.0 Epistaxis (principal); I48.91 Unspecified atrial fibrillation; G89.29 Other chronic pain; G62.9 Polyneuropathy, unspecified; Z88.0 Allergy status to penicillin; Z88.1 Allergy status to other antibiotic agents; Z88.8 Allergy status to other drugs, medicaments and biological substances; Z90.49 Acquired absence of other specified parts of digestive tract; Z90.710 Acquired absence of both cervix and uterus; Z79.899 Other long term (current) drug therapy; Z79.4 Long term (current) use of insulin; Z98.890 Other specified postprocedural states
CPT/HCPCS: 36415; 74176; 85025; 85610; 85730; 93005; 99284

== ENCOUNTER 2025-03-29 14:49 | Emergency (ER) | payer MEDICARE, MEDICAID ==
[~2025-03-29] VITALS: Ht 180.3 cm; Wt 104.0 kg
[2025-03-29 14:58] VITALS: BP 174/110; PULSE 104; RESP 18; TEMP 97.8; O2SAT 96
--- NOTE | 2025-03-29 15:04 | Physician Documentation ---
History of Present Illness ~ General Chief Complaint: General Stated Complaint: GENERAL WEAKNESS Primary Medical Doctor: RAUL PMD, DR HALE History of Present Illness Initial Comments This is a 54-year-old female brought in by EMS due to fatigue and flank pain. Per EMS report patient reported history of diabetes though she reports she has been feeling too weak to take her antidiabetic medications. Patient reports that her primary concern is four days of right flank pain and that she has been told not to over exert herself due to having a pulmonary embolism one-month prior. Medication Reconciliation Allergies: Coded Allergies: Penicillins (Verified Allergy, Severe, "CAUSES BREATHING PROBLEMS AND A RASH", 03/29/25) ciprofloxacin (Verified Allergy, Unknown, HIVES, DIZZINESS, GI ISSUES, 03/29/25) "SEVERE ITCHING WITH HIVES, SEVERE DIZZINESS, HEART BURN, STOMACH PAIN, NAUSEOUS" montelukast (Unverified Allergy, Unknown, 03/29/25) RASH/ITCH pregabalin (Unverified Allergy, Unknown, RASH/ITCH, 03/29/25) lisinopril (Verified Adverse Reaction, Unknown, "CAUSES ME TO PASS OUT", 03/29/25) zolpidem (Verified Adverse Reaction, Unknown, "CAUSES SLEEP WALKING", 03/29/25) Scheduled Apixaban (Eliquis), 1 TAB PO Q12H, (Reported) Atorvastatin Calcium (Atorvastatin Calcium), 1 TAB PO DAILY, (Reported) Brexpiprazole (Rexulti), 1 TAB PO DAILY, (Reported) Carvedilol (Coreg), 1 TAB PO Q12H, (Reported) Cholecalciferol (Vitamin D3) (Vitamin D3), 1 TAB PO DAILY, (Reported) Cyclobenzaprine HCl (Cyclobenzaprine HCl), 10 MG PO BID PRN MUSCLE SPASM, (Reported) Empagliflozin (Jardiance), 1 TAB PO DAILY, (Reported) Estradiol (Yuvafem), 1 TAB VG MTH, (Reported) Fenofibrate,Micronized (Fenofibrate), 1 CAP PO DAILY, (Reported) Glucagon,Human Recombinant (Glucagon Emergency Kit), 1 MG IM UD, (Reported) Insulin Degludec (Tresiba Flextouch U-100), 100 UNITS SQ QAM, (Reported) Ipratropium [place] Nasal [place]* (Atrovent Nasal [place]*), 2 SPRAY NA BID, (Reported) Lorazepam (Ativan), 2 TAB PO HS, (Reported) Melatonin (Melatonin), 15 MG PO HS, (Reported) Modafinil (Modafinil), 2 TAB PO QAM, (Reported) Montelukast Sodium (Montelukast Sodium), 1 TAB PO DAILY, (Reported) Naloxone HCl (Narcan), 1 SPRAYS BOTHNARES ONCE, (Reported) Normal Saline (SODIUM CHLORIDE 1000ml IV.SOLN), 1,000 ML IV DAILY, (Reported) Pantoprazole Sodium (Protonix), 1 TAB PO BID, (Reported) Quetiapine Fumarate (Quetiapine Fumarate), 1 TAB PO HS, (Reported) Sertraline HCl (Sertraline HCl), 1 TAB PO DAILY, (Reported) Scheduled PRN Acetaminophen (Arthritis Pain Relief), 2 CAP PO Q8H PRN for headache, (Reported) Albuterol Sulfate (Ventolin Hfa), 2 PUFFS PO Q4H PRN for SOB or wheezing, (Reported) Amylase/Lipase/Protease (Creon Dr 6,000 Units Capsule), 1 EACH PO DAILY PRN for SNACK, (Reported) Capsaicin 60GM Cream* (Zostrix Cream*), 1 APPLIC TP PRN PRN for pain, (Reported) Diclofenac Sodium (Diclofenac Sodium), 1 APPLIC TOP BID PRN for pain, (Reported) Dicyclomine HCl (Dicyclomine HCl), 1 TAB PO QID PRN for STOMACH CRAMPING, (Reported) Hydrocodone Bit/Acetaminophen 10/325 MG* ([place] 10/325 MG*), 1 TAB PO BID PRN for pain, (Reported) Insulin Aspart (Novolog), 10 UNIT SQ ACHS PRN for SLIDING SCALE, (Reported) Lidocaine (Lidocaine), 1 APPLIC TOP QID PRN for pain, (Reported) Meclizine Hcl (Meclizine Hcl), 2 TABLET PO TID PRN for dizziness/vertigo, (Reported) Prochlorperazine Maleate (Prochlorperazine Maleate), 1 TAB PO TID PRN for nausea/vomiting, (Reported) [Compazine], 25 MG RC BID PRN for nausea/vomiting, (Reported) Miscellaneous Medications [Diolofenac Sodium], (Reported) Past Medical History Past Medical History: Peripheral Neuropathy, Chronic Pain Past Surgical History: appendectomy, cholecystectomy, hysterectomy, orthopedic surgeries Alcohol Use: None Drug Use: none Lives In: Home Occupation: employed Review of Systems ROS As stated above in the HPI, otherwise all systems are reviewed and negative. Physical Exam Physical Exam Vital Signs: Temperature: 97.8, Heart Rate: 104, Respiratory Rate: 18, BP: 174/110, Pulse Oximetry: 96, Weight: 104.000 Physical Exam VITALS: Reviewed and as above. GENERAL: Alert, nontoxic appearing, no apparent distress. HEENT: RESPIRATORY: No increased work of breathing, no respiratory distress, speaking in full clear sentences CHEST: CV: BACK: GI: MUSCULOSKELETAL: SKIN: NEURO: PSYCH: Progress Results/Orders Results/Orders Vital Signs 03/29/25 14:58 Temp 97.8 Pulse 104 Resp 18 B/P (MAP) 174/110 Pulse Ox 96 Medical Decision Making Additional information obtaine: N/A Findings MSE performed in triage and patient returned to ED lobby by nursing staff to await available ED room Differential Diagnosis Sepsis, DKA, AAA, appendicitis, pyelonephritis, cholelithiasis, nephrolithiasis, pyelonephritis, musculoskeletal pain, CVA Departure Disposition: 07 LEFT AWOL/ELOPED Impression: Primary Impression: Flank pain Qualified Codes: R10.A1 - Flank pain, right side Additional Impression: Fatigue Qualified Codes: R53.83 - Other fatigue Referrals: NO PRIMARY CARE PROVIDER (PCP) Signature Scribe Signature: No scribe Attestation: The note accurately reflects work and decisions made by me.MATTEO Don 03/31/25 01:16 CHIP BACA Mar 29, 2025 15:04
== END 2025-03-30 00:43 | disposition left against medical advice (07) ==
LOC: ER 14:49
DX: R53.83 Other fatigue (principal); R10.A1 Flank pain, right side; E11.42 Type 2 diabetes mellitus with diabetic polyneuropathy; G89.29 Other chronic pain; Z90.49 Acquired absence of other specified parts of digestive tract; Z90.710 Acquired absence of both cervix and uterus; Z88.0 Allergy status to penicillin; Z88.1 Allergy status to other antibiotic agents; Z88.8 Allergy status to other drugs, medicaments and biological substances; Z79.899 Other long term (current) drug therapy; Z98.890 Other specified postprocedural states
CPT/HCPCS: 99283